=== PATIENT | female | born 1960 | race Caucasian/White ===

== ENCOUNTER 2024-10-17 14:42 | Outpatient (CLI) | payer OTHER, SELFPAY ==
--- NOTE | ~2024-10-17 | MR_ITS ---
MRI of the left hip Clinical history: Injury Technique: Coronal T1-weighted, T2-weighted, and proton-density fat-sat images, and axial T1-weighted and proton-density fat-sat images were acquired through the pelvis. Coronal T2-weighted images and c oronal, axial, and sagittal proton-density fat-sat images were acquired through the left hip. Findings: There is no fracture or avascular necrosis of either hip. Bone marrow signals in the proxim al femora and pelvic bones are unremarkable. Bilateral hip joint spaces are preserved. Articular cart ilage is well preserved bilaterally. No joint effusion. No definite left acetabular labral tear ident ified. Musculature about the pelvis and left hip is unremarkable. No muscle atrophy or edema evident. There is partial probable chronic tearing at the left hamstring tendon origins. Remaining tendons otherwise appear intact. No soft tissue mass or fluid collection seen. IMPRESSION: Partial tearing of the left hamstring tendon origins, likely chronic in nature. Correlate for acute i njury to this region. No other significant findings. Reviewed, dictated and finalized at location . IMPRESSION: Partial tearing of the left hamstring tendon origins, likely chronic in nature. Correlate for acute injury to this region. No other significant findings.
== END 2024-10-17 14:43 | disposition home or self-care (01) ==
LOC: MICIMG 14:44
DX: S76.312A Strain of muscle, fascia and tendon of the posterior muscle group at thigh level, left thigh, initial encounter (principal); X58.XXXA Exposure to other specified factors, initial encounter
CPT/HCPCS: 73721